=== PATIENT | female | born 1995 | race American Indian/Alaskan Native ===

== ENCOUNTER 2021-02-08 10:35 | Emergency (ER) | payer SELFPAY ==
[2021-02-08 11:53] VITALS: BP 100/60
--- NOTE | 2021-02-08 12:21 | Emergency Department Report ---
Chief Complaint: Vaginal Bleeding Stated Complaint: VAGINAL BLEEDING Time Seen by Provider: 02/08/21 11:57 - HPI History of Present Illness: 25-year-old -[place] female presents to the emergency room - Exam Vital Signs: Vital Signs 02/08/21 11:50 Temperature 98.5 F Pulse Rate 67 Respiratory 16 Rate Blood Pressure 100/60 [Right] O2 Sat by Pulse 100 Oximetry MSE screening note: Focused history and physical exam performed. Due to findings the following was ordered: ED Disposition for MSE Disposition: 01 HOME / SELF CARE / HOMELESS Is pt being admited?: No Does the pt Need Aspirin: No Condition: Stable Additional Instructions: Please follow-up with an [facility] [facility]. I have listed several below for your convenience. Referrals: [facility] [Provider Group] - 3-5 Days [facility] [Provider Group] - 3-5 Days [facility] [Provider Group] - 3-5 Days Forms: Work/School Release Form(ED)
== END 2021-02-08 13:23 | disposition home or self-care (01) ==
LOC: ED 10:35
DX: N93.9 Abnormal uterine and vaginal bleeding, unspecified (principal)
CPT/HCPCS: 99282